=== PATIENT | female | born 2000 | race Caucasian/White ===

== ENCOUNTER 2022-04-08 03:53 | Emergency (ER) | payer OTHER, SELFPAY ==
[2022-04-08 04:00] VITALS: BP 115/71; PULSE 72; RESP 19; TEMP 37; O2SAT 98; BMI 24.3
--- NOTE | 2022-04-08 04:13 | XRR_ITS ---
PROCEDURE INFORMATION: Exam: XR Left Hand Exam date and time: 04/08/2022 4:19 AM Age: 22 years old Clinical indication: Injury or trauma; Other: Laceraction; Work related; Left; Little finger; Patient HX: Patient was at work and had lt 5th digit pinched by a piece of metal small laceration to plantar aspect of 5th digit at region of middle phalange. TECHNIQUE: Imaging protocol: Radiologic exam of the Left hand. Views: 3 or more views. COMPARISON: No relevant prior studies available. FINDINGS: Bones/joints: Osseous structures of the hand are without an acute process. Distal radioulnar joint and radiocarpal joints grossly normal. Carpus without fracture. Metacarpals and phalangeal without fracture or dislocation. No erosive changes or periarticular calcifications. Soft tissues: Normal. XR/XR hand LT min 3V* [id number] IMPRESSION: Normal hand. No fracture. No foreign body.
--- NOTE | 2022-04-08 04:14 | W.ED.WOUNDLC ---
HPI - Wound/Laceration General: Chief Complaint: Wound/Laceration Stated Complaint: left hand lac Time Seen by Provider: 04/08/22 03:55 Source: patient Mode of arrival: ambulatory Limitations: no limitations History of Present Illness: 22-year-old female who states she is at work tonight states she injured it with her left pinky finger getting pinched by a piece of metal. She does have a laceration to the palmar aspect to her finger lastly 1 cm states he does have some slight pain she rates her pain a 2 out of 10 denies any other injuries last tetanus was 10 years ago. Associated symptoms: Denies chills, fever(s), nausea or vomiting Review of Systems Const: Denies: fever(s), chills, body aches or change in appetite Eyes: Denies: blurry vision or eye discomfort ENMT: Denies: throat pain or dental pain Card: Denies: chest pain Resp: Denies: dyspnea GI: Denies: abdominal pain, nausea, vomiting or diarrhea : Denies: dysuria Musc: Reports: extremity pain Skin/Breast: Denies: rash Neuro: Denies: headache(s) Psych: Denies: depression Gerardo/Lymph: Denies: easy bruising All/Imm: Denies: urticaria PFSH ED PFSH: Medical History (Updated 04/08/22 @ 04:28 by Hayder Sandoval MD) No pertinent past medical history Social History (Updated 04/08/22 @ 04:15 by Hayder Sandoval MD) Substance/Drug Use: never Physical Exam Const: COMMON NORMALS: no acute distress, average body habitus and patient oriented x3 HENMT: COMMON NORMALS: atraumatic HEAD & SCALP: atraumatic Eye: COMMON NORMALS: conjunctivae normal CONJUNCTIVA: Yes conjunctivae normal Neck/C-Spine: COMMON NORMALS: full ROM and supple Chest: COMMONS NORMALS: normal inspection of the chest Resp: COMMON NORMALS: normal respiratory effort Cardio: COMMON NORMALS: regular rate RATE: regular rate GI: INSPECTION: Yes normal to inspection Extremity: COMMON NORMALS: full ROM Neuro: COMMON NORMALS: patient oriented x3 Psych: COMMON NORMALS: mental status grossly normal Skin: NARRATIVE SKIN EXAM: 1 cm laceration palmar aspect to left pinky finger at the DIP no tendon involvement Procedures Laceration Laceration 1: Site: hand Side (If applicable): left Size (cm): 1 Description: linear Depth: simple, single layer Local Anesthetic: lidocaine 1% Amount of anesthesia used (mL): 8 Pre-repair: wound explored and irrigated extensively Skin layer closed with: nylon Size (cm): 5-0 Course Vital Signs: Vital signs: Vital Signs Temperature 98.6 F 04/08/22 04:00 Pulse Rate 72 04/08/22 04:00 Respiratory Rate 19 H 04/08/22 04:00 Blood Pressure 115/71 04/08/22 04:00 Pulse Oximetry 98 04/08/22 04:00 Oxygen Delivery Me thod 04/08/22 04:00 MDM - Wound/Laceration Medical Decision Making Patient presents with a finger laceration she has no tendon involvement no fracture wound was irrigated thoroughly wound was repaired she is return in 7 days for suture removal Discharge Plan Discharge Patient Disposition: Home Clinical Impression: Laceration Discharge Orders: Discharge ED (Routine); Ordered 04/08/22 Ordered By: Hayder Sandoval Discharge Diet: Advance as tolerated Discharge Activity: Resume usual activity Patient Instructions: Laceration (ED) Activity Restrictions/Additional Instructions: suture removal in 7 days Coding Level of Care Code ED Smoking Pipe Liner for Ray Fwd Exam Comprehensive
[2022-04-08] MEDS: tetanus-dipt-pertussis 0.5 mL SDV IM (04:37)
[2022-04-08 05:11] VITALS: BP 115/71; PULSE 72; RESP 16; TEMP 37; O2SAT 98
== END 2022-04-08 05:13 | disposition home or self-care (01) ==
PROVIDERS: Emergency Provider Emergency Medicine
DX: S61.217A Laceration without foreign body of left little finger without damage to nail, initial encounter (principal); W23.0XXA Caught, crushed, jammed, or pinched between moving objects, initial encounter; Z23 Encounter for immunization
CPT/HCPCS: 12001; 73130; 90471; 90715; 99283

== ENCOUNTER 2022-11-02 11:22 | Outpatient (CLI) | payer OTHER, SELFPAY ==
--- NOTE | 2022-11-02 11:38 | US_ITS ---
WS: [id number] ULTRASOUND LEFT BREAST HISTORY: MASS IN LEFT BREAST COMPARISON: None available. TECHNIQUE: 2-D and Doppler. There is a lobulated solid soft tissue mass centered in the LEFT breast at 1:00, 4 cm from the nipple . This is a hypoechoic lobulated soft tissue mass measuring 2.5 x 1.8 x 2.9 cm. No significant vascul arity. No additional abnormality. IMPRESSION: US/US breast LT limited* [id number] BI-RADS: 4-Suspicious Finding-Biopsy Should Be Considered FOLLOW-UP: Biopsy Recommended 1. Solid mass RIGHT breast at 1:00. 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 2. Recommend ultrasound guided biopsy LEFT breast mass for confirmation.
== END 2022-11-02 11:23 | disposition home or self-care (01) ==
PROVIDERS: PCP Nurse Practitioner Family; Visit Provider Nurse Practitioner Family
DX: N63.21 Unspecified lump in the left breast, upper outer quadrant (principal)
CPT/HCPCS: 76642

== ENCOUNTER 2022-12-01 07:56 | Outpatient (CLI) | payer OTHER, SELFPAY ==
--- NOTE | 2022-12-01 08:08 | US_ITS ---
WS: [id number] ULTRASOUND-GUIDED LEFT BREAST BIOPSY HISTORY: ABNORMAL MAMMOGRAM ON LT BREAST COMPARISON: 11/02/2022 Procedure, risks and complications are explained to the patient. Medications are reviewed. Consent is obtained. The mass in the LEFT breast is localized with ultrasound. Mass localizes to 1:00, 4 cm from the nippl e. Skin is cleansed with ChloraPrep and anesthetized with 1% buffered lidocaine. Small dermatome is m nataliia. Under sterile conditions mass is biopsied with a 14-gauge Achieve needle. Multiple core biopsies are performed. Material placed in formalin and sent to pathology for review. No complications encoun tered. Breast tissue marker (Stylistpick ultrasound enhanced ribbon): Single. Patient left the radiology suite with no complications. Patient is instructed to return to [place] or [facility] with any concerns. US/[place] [id number] IMPRESSION: 1. Uncomplicated core needle biopsy LEFT breast mass at 1:00. 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 RECOMMENDATION: No additional imaging necessary. Follow-up with primary care ph ysician.
== END 2022-12-01 07:57 | disposition home or self-care (01) ==
PROVIDERS: PCP Nurse Practitioner Family; Visit Provider Nurse Practitioner Family
DX: D24.2 Benign neoplasm of left breast (principal)
CPT/HCPCS: 19083; 88305

== ENCOUNTER → 2023-07-25 16:01 | Outpatient (BNVA) | payer OTHER, SELFPAY | PROVIDERS: PCP Nurse Practitioner Family; Referring Provider Internal Medicine; Visit Provider Nurse Practitioner Women's Health | DX: Z30.431 Encounter for routine checking of intrauterine contraceptive device (principal); Z30.9 Encounter for contraceptive management, unspecified; Z12.4 Encounter for screening for malignant neoplasm of cervix | CPT/HCPCS: 81025; 88175 ==

== ENCOUNTER → 2023-09-27 14:44 | Outpatient (BNVA) | payer OTHER, SELFPAY | PROVIDERS: PCP Nurse Practitioner Family; Visit Provider Nurse Practitioner Women's Health | DX: R87.619 Unspecified abnormal cytological findings in specimens from cervix uteri (principal); Z30.431 Encounter for routine checking of intrauterine contraceptive device | CPT/HCPCS: 88175 ==

== ENCOUNTER 2025-03-27 12:50 | Inpatient (IN) | payer OTHER, SELFPAY ==
--- OUTSIDE RECORDS SUMMARY | 2025-03-27 13:01 | XMS_ITS | Encounter Summary ---
Author Organization [facility] Address [address] [place] [address] Care Team Providers Care Tar Leveler Name Role Phone Krysta Davis MD Primary Care Provider [phone] Encounter Details Date Type Department Care Team (Late st Contact Info) Description 03/20/2025 External Device Data [facility] Provider, Abstract NO ADDRESS ON FILE Social History Tobacco Use Types Packs/Day Years Used Date Smoking Tobacco: Every Day Cigarettes 0.3 1.1 Started: 03/05/2024 Smokeless Tobacco: Never Alcohol Use Standard Drinks/Week Comments Never 0 (1 standard drink = 0.6 oz pur e alcohol) Comments No Sex and Gender Information Value Date Recorded Sex Assigned at Not on file Legal Sex Female 1:08 PM CDT Gender Identity Not on file Sexual Orientation Not on file documented as of this encounter Plan of Treatment Not on file documented as of this encounter Visit Diagnoses Not on filedocumented in this encounter Additional Health Concerns Assessment Noted Time PHQ-9 Depression Total Score: 1 10/05/19 25 4:07 PM 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
--- OUTSIDE RECORDS SUMMARY | 2025-03-27 13:02 | XMS_ITS | Clinical Summary ---
Author Organization [facility] [address] Address [address] [place] [address] Care Team Providers Care Agri Business Agent Name Role Phone Krysta Davis MD Primary Care Provider [phone] Allergies No known active allergies Medications levonorgestreL (Mirena) 21 mcg/24 hr (8 yrs) 52 mg IUD 1 Device by Intrauterine route. Active busPIRone (BUSPAR) 10 mg tabletIndicati ons:Recurrent major depressive disorder, in partial remission,Gene ralized anxiety disorder Take 1 Tablet (10 mg) by mouth 3 times daily. 180 Tablet 3 10/05/19 25 Active escitalopram oxalate (LEXAPRO) 20 mg tabletIndicati ons:Recurrent major depressive disorder, in partial remission,Gene ralized anxiety disorder Take 1 tablet by mouth once daily 100 Tablet 2 03/04/20 25 Active escitalopram oxalate (LEXAPRO) 20 mg tabletIndicati ons:Recurrent major depressive disorder, in partial remission,Gene ralized anxiety disorder Take 1 Tablet (20 mg) by mouth daily. 30 Tablet 3 10/05/19 25 025 Discontinued Active Problems No known active problems Encounters Date Type Department Care Team Description 03/20/2025 External Device Data [facility] ABSTRACTION Provider, Abstract 03/20/2025 External Device Data [facility]STRACTION Provider, Abstract 03/02/2025 Refill [facility] [address] [place] [address] Martha Garcia NP Recurrent major depressive disorder, in partial remission; Generalized anxiety disorder 02/20/2025 External Device Data [facility]STRACTION Provider, Abstract 01/29/2025 External Device Data [facility]STRACTION Provider, Abstract 01/25/2025 External Device Data [facility] ABSTRACTION Provider, Abstract 01/24/2025 External Device Data [facility]STRACTION Provider, Abstract 01/23/2025 External Device Data [facility] ABSTRACTION Provider, Abstract from Last 3 Months Immunizations Immunization Administration Dates Next Due (PFIZER)(12 YR UP) COVID-19 VACCINE - EMERGENCY USE AUTHORIZATION, MRNA, [id number](PF) 30 MCG/0.3 ML IM SUSP 08/05/2021,07/06/2021 Family History Medical History Relation Name Comments Skin Cancer Father Lung Cancer Mother Relation Name Status Comments Father Mother Social History Tobacco Use Types Packs/Day Years Used Date Smoking Tobacco: Every Day Cigarettes 0.3 1.1 Started: 03/05/2024 Smokeless Tobacco: Never Tobacco Cessation:Ready to Q uit: Not Asked; Counseling Given: No Alcohol Use Standard Drinks/Week Comments Never 0 (1 standard drink = 0.6 oz pur e alcohol) Comments No Sex and Gender Information Value Date Recorded Sex Assigned at Not on file Legal Sex Female 1:08 PM CDT Gender Identity Not on file Sexual Orientation Not on file Last Filed Vital Signs Vital Sign Reading Time Taken Comments Blood Pressure 110/70 10/05/2024 4:01 PM DRAFTER ELECTROMECHANICAL Pulse 90 10/05/2024 4:01 PM DRAFTER ELECTROMECHANICAL Temperature 36.9 C (98.4 F) 10/05/2024 4:01 PM DRAFTER ELECTROMECHANICAL Respiratory Rate 16 10/05/2024 4:01 PM DRAFTER ELECTROMECHANICAL Oxygen Saturation 96% 10/05/2024 4:01 PM DRAFTER ELECTROMECHANICAL Inhaled Oxygen Concentration - - Weight 67.1 kg (148 lb) 10/05/2024 4:01 PM DRAFTER ELECTROMECHANICAL Height 177.8 cm (5' 10 ) 10/05/2024 4:01 PM DRAFTER ELECTROMECHANICAL Body Mass Index 21.24 10/05/2024 4:01 PM DRAFTER ELECTROMECHANICAL Plan of Treatment Health Maintenance Due Date Last Done Comments HPV VACCINES (1 - 3-dose series) 01/11/2016 DTAP/TDAP/TD VACCINES (1 - Tdap) 01/11/2020 HEPATITIS B VACCINES (1 of 3 - 19+ 3-dose series) 01/11/2020 CERVICAL CANCER SCREENING 2022 HPV/Cotest (21-29) 2022 PAP SMEAR 2022 COVID-19 Vaccine (2023-2 5 season) 2024 08/05/2021, 07/06/2021 Preventative Visit- Commercial 09/05/2024 INFLUENZA VACCINE (#1) 2025 , 06/19/2024, 06/04/2022, Additional history exists Insurance [place] [id number] Care Teams Agri Business Agent Relationship Specialty Start Date End Date Krysta Davis MD [address] [address] PCP - General Family Practice 11/08/23
--- OUTSIDE RECORDS SUMMARY | 2025-03-27 13:02 | XMS_ITS | Encounter Summary ---
Author Organization [facility] Address [address] [place] [address] Care Team Providers Care Fabrication Welder Name Role Phone Krysta Davis MD Primary Care Provider [phone] Encounter Details Date Type Department Care Team [...] Total Score: 1 10/05/19 25 4:07 PM COUNCILPERSON documented as of this encounter Care Teams Fabrication Welder Relationship Specialty Start Date End Date Krysta Davis MD [address] [facility] [address] [place] [address] PCP - General Family Practice 11/08/23 documented as of this encounter
[2025-03-27 13:09] VITALS: BP 141/89; PULSE 64; RESP 18; TEMP 36.7; O2SAT 99
[2025-03-27 13:15] VITALS: O2SAT 99
--- NOTE | 2025-03-27 13:15 | W.ED.PSYCHS ---
HPI - Psych General: Chief Complaint: Psychiatric Symptoms Stated Complaint: MHE Time Seen by Provider: 03/27/25 13:02 History of Present Illness: 25-year-old female with history of anxiety and depression, who presents to the ED for suicidal ideation. She states that she has been having thoughts of harming herself over the last month but this morning at about 0800 she had thoughts of hanging myself . She states that she does not have a plan at the moment. She reports that she has been stressed recently because her mother has cancer, her cousin had ended his life, as well as marital problems all within this year. She is currently on escitalopram and buspirone and states these have been increased about 4 months ago. Denies any thoughts of harm to others. She states that she has never been admitted before for suicidal ideation. No other complaints at this time. Associated symptoms: Reports depression and suicidal ideation; Deny homicidal ideation Related Data Home Medications ?Medication ?Instructions ?Recorded ?Confirmed levonorgestrel (Mirena) 1 device intrauterine .[id number] 09/27/23 03/27/25 buspirone 10 mg tablet 10 mg PO TID 03/27/25 03/27/25 escitalopram oxalate 20 mg tablet 20 mg PO DAILY 03/27/25 03/27/25 Allergies Allergy/AdvReac Type Severity Reaction Status Date / Time No Known Drug Allergies Allergy none Verified 10/01/24 14:04 Review of Systems Const: Denies: fever(s) or fatigue Card: Denies: chest pain or palpitations Resp: Denies: dyspnea GI: Denies: abdominal pain, nausea, vomiting or change in bowel habits : Denies: difficulty voiding, dysuria or hematuria Psych: Reports: anxiety, depression and suicidal ideation; Denies: homicidal ideation [facility] ED PFSH: Medical History Abnormal Pap smear of cervix No pertinent past medical history Family History Denies family history of Colon cancer Ovarian cancer Diabetes Depression Heart disease Breast cancer Hypertension Uterine cancer Thyroid disease Stroke Social History Smoking and tobacco/nicotine status: never used tobacco/nicotine Substance/Drug Use: never Physical Exam Const: COMMON NORMALS: no acute distress, patient oriented x3 and well nourished GENERAL APPEARANCE: anxious HENMT: COMMON NORMALS: normocephalic HEAD & SCALP: normocephalic Resp: COMMON NORMALS: normal respiratory effort and clear to auscultation bilaterally AUSCULTATION: clear to auscultation bilaterally Cardio: COMMON NORMALS: regular rate and regular rhythm RATE: regular rate RHYTHM: regular rhythm Neuro: COMMON NORMALS: patient oriented x3 Psych: MOOD & AFFECT: Yes depressed mood and Yes tearful THOUGHT CONTENT: Yes Suicidality present and No Homicidality present Course Vital Signs: Vital signs: Vital Signs Temperature 98.1 F 03/27/25 13:09 Pulse Rate 64 03/27/25 13:09 Respiratory Rate 18 03/27/25 13:09 Blood Pressure 141/89 03/27/25 13:09 Pulse Oximetry 99 03/27/25 13:15 Oxygen Delivery Me thod Room Air 03/27/25 13:15 MDM - Psych Medical Decision Making Pt presetns with suicidal ideation and depression. Pt placed on 96 hr hold for suicidal ideation. Discussed with Dr. Guerrero admission orders written Medical Records I reviewed the patient's medical records. Lab Data I reviewed the patient's lab results. 03/27/25 13:43 03/27/25 13:43 Laboratory Results WBC 7.63 10^3/uL (3.29-11.43) 03/27/25 13:43 RBC 3.98 10^6/uL (3.85-5.65) 03/27/25 13:43 Hgb 11.70 g/dL (11.27-16.99) 03/27/25 13:43 Hct 35.5 % (36-47) L 03/27/25 13:43 MCV 89.2 fl (85-98) 03/27/25 13:43 MCH 29.4 pg (27-33) 03/27/25 13:43 MCHC 33.0 g/dL (30-55) 03/27/25 13:43 RDW 12.8 % (12.1-15.1) 03/27/25 13:43 Plt Count 261 10^3/cmm (157-399) 03/27/25 13:43 MPV 9.5 fL (7.4-10.4) 03/27/25 13:43 Neut % (Auto) 62.7 % 03/27/25 13:43 Lymph % (Auto) 29.6 % 03/27/25 13:43 Villalba % (Auto) 5.0 % 03/27/25 13:43 Eos % (Auto) 2.1 % 03/27/25 13:43 Baso % (Auto) 0.5 % 03/27/25 13:43 Neut # (Auto) 4.78 10^3/uL (1.8-7.7) 03/27/25 13:43 Lymph # (Auto) 2.3 10^3/uL (0.8-4.8) 03/27/25 13:43 Villalba # (Auto) 0.4 10^3/uL (0.2-0.9) 03/27/25 13:43 Eos # (Auto) 0.2 10^3/uL (0.0-0.8) 03/27/25 13:43 Baso # (Auto) 0.0 10^3/uL (0.0-0.1) 03/27/25 13:43 Nucleated RBC % (auto) 0 % 03/27/25 13:43 Nucleated RBCs # 0.0 /100WBC 03/27/25 13:43 Sodium 140 mmol/L (136-145) 03/27/25 13:43 Potassium 3.9 mmol/L (3.5-5.1) 03/27/25 13:43 Chloride 102 mmol/L (98-107) 03/27/25 13:43 Carbon Dioxide 26 mmol/L (22-29) 03/27/25 13:43 Anion Gap 15.9 (5-19) 03/27/25 13:43 BUN 12 mg/dL (6-20) 03/27/25 13:43 Creatinine 0.8 mg/dL (0.5-0.9) 03/27/25 13:43 GFR Calculation 88.1 mL/min (90-130) L 03/27/25 13:43 Glucose 88 mg/dL (65-115) 03/27/25 13:43 Calculated Osmolality 289 mOsm/kg (285-295) 03/27/25 13:43 Calcium 9.2 mg/dL (8.5-10.5) 03/27/25 13:43 Total Bilirubin 0.2 mg/dL (0.15-1.2) 03/27/25 13:43 AST 11 U/L (0-32) 03/27/25 13:43 ALT < 5 U/L (0-33) 03/27/25 13:43 Alkaline Phosphatase 75 U/L (35-105) 03/27/25 13:43 Total Protein 6.7 g/dL (6.6-8.7) 03/27/25 13:43 Albumin 4.2 g/dL (3.5-5.2) 03/27/25 13:43 Globulin 2.5 g/dL (1.3-4.6) 03/27/25 13:43 HCG, Qual Negative (Negative) 03/27/25 13:43 Salicylates < 0.3 mg/dL (3-10) L 03/27/25 13:43 Acetaminophen < 5.0 ug/mL (10-30) L 03/27/25 13:43 All radiology interpretation(s) finalized by discharge Discharge Plan Discharge Patient Disposition: Admitted As Inpatient Clinical Impression: Suicidal ideation, Depression Condition: Stable Coding Level of Care Code ED Industrial Hygienist for Ray Gutierres
[2025-03-27 14:13] LABS: Hematocrit 35.5 % (36-47); Hemoglobin 11.70 g/dL (11.27-16.99); Mean Corpuscular HGB Conc 33.0 g/dL (30-55); Mean Corpuscular Hemoglobin 29.4 pg (27-33); Mean Corpuscular Volume 89.2 fl (85-98); Nucleated Red Blood Cells % 0 %; Platelet Count 261 10^3/cmm (157-399); Red Blood Count 3.98 10^6/uL (3.85-5.65); White Blood Count 7.63 10^3/uL (3.29-11.43)
[2025-03-27 14:22] LABS: HCG, Serum Qual Negative (Negative)
[2025-03-27 14:26] LABS: Alanine Aminotransferase < 5 U/L (0-33); Albumin Level 4.2 g/dL (3.5-5.2); Alkaline Phosphatase 75 U/L (35-105); Anion Gap 15.9 (5-19); Aspartate Amino Transferase 11 U/L (0-32); Blood Urea Nitrogen 12 mg/dL (6-20); Calcium 9.2 mg/dL (8.5-10.5); Carbon Dioxide 26 mmol/L (22-29); Chloride 102 mmol/L (98-107); Globulin 2.5 g/dL (1.3-4.6); Glucose 88 mg/dL (65-115); Osmolality Calculated 289 mOsm/kg (285-295); Potassium 3.9 mmol/L (3.5-5.1); Sodium 140 mmol/L (136-145); Total Protein 6.7 g/dL (6.6-8.7)
[2025-03-27 14:29] LABS: Acetaminophen < 5.0 ug/mL (10-30); Salicylate < 0.3 mg/dL (3-10)
--- NOTE | 2025-03-27 15:07 | PC.NURSE ---
96 hr rights reviewed with pt @4952 with assistance of [facility] purchasing officer Brice Stephens All education reviewed with pt at this time. Pt verbalized understanding to hold parameters. Patient copy was left with pt @bedside. Pt declined a snack or drink when asked. No further needs.
--- NOTE | 2025-03-27 16:48 | ECG_ITS ---
[facility] Date: 2025-03-27 Pat Name: Stephanie Fields Department: Room: 124 Gender: Female Family Dinner Service Specialist: : 2000 Requested By: Ramiro Bowman Order Number: [id number] Alirio MD: Dylan Ryder M.D. Measurements Intervals [place] Rate: 45 P: 141 FL: 149 QRS: 123 QRSD: 91 T: 130 QT: 496 QTc: 429 Interpretive Statements ECTOPIC ATRIAL BRADYCARDIA POSSIBLE LEFT ATRIAL ENLARGEMENT [-0.1mV P-WAVE IN V1/V2] RIGHT AXIS DEVIATION [QRS AXIS > 100] POSSIBLE RIGHT VENTRICULAR CONDUCTION DELAY [RSR (QR) IN V1/V2] No previous ECG available for comparison Electronically Signed On 03-28-2025 09:10:36 CDT by Dylan Ryder M.D. [email or web address]
[2025-03-27 17:25] LABS: Respiratory Syncytial Virus Ce NEGATIVE (Negative); SARS-CoV-2 PCR NEGATIVE (Negative)
[2025-03-27 17:34] VITALS: BP 141/89; PULSE 65; O2SAT 100
--- NOTE | 2025-03-27 18:21 | PC.NURSE ---
Psych narrative Patient admitted to ER with the diagnosis SI with depression. Patient was calm and cooperative.
--- NOTE | 2025-03-27 18:29 | PC.ADMIT ---
[email or web address] [facility] Ad[facility] Note: The patient,Stephanie Fields,25 y/o, was given written information regarding hospital policies, unit procedures and contact persons. Patient's smoking status: never smoked. Vital Signs - 8 hr 03/27/25 13:09 03/27/25 13:15 03/27/25 17:34 Temperature 98.1 F Pulse Rate 64 65 Respiratory Rate 18 Blood Pressure 141/89 141/89 Pulse Oximetry 99 99 100 Oxygen Delivery Method Room Air Room Air 03/27/25 17:39 Temperature Pulse Rate Respiratory Rate Blood Pressure Pulse Oximetry Oxygen Delivery Method Room Air Psych narrative Patient admitted to ER with the diagnosis SI with depression. Patient was calm and cooperative.
[2025-03-27 18:32] VITALS: BP 133/86; PULSE 53; RESP 18; TEMP 36.6; O2SAT 99
[2025-03-27 19:51] VITALS: BP 117/69; PULSE 54; RESP 18; TEMP 36.3; O2SAT 98
[2025-03-28 06:00] VITALS: BP 114/80; PULSE 56; RESP 18; O2SAT 96
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
[2025-03-28 14:00] VITALS: BP 144/79; PULSE 51; RESP 18; TEMP 37.5; O2SAT 100
[2025-03-28 20:43] VITALS: BP 114/67; PULSE 60; RESP 17; TEMP 36.9; O2SAT 99
[2025-03-29 06:00] VITALS: BP 106/62; PULSE 78; RESP 19; TEMP 36.8; O2SAT 99
[2025-03-29 14:00] VITALS: BP 116/78; PULSE 60; RESP 16; TEMP 37.1; O2SAT 100
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
[2025-03-29 20:11] VITALS: BP 115/71; PULSE 60; RESP 18; TEMP 36.9; O2SAT 99
[2025-03-30 06:00] VITALS: BP 124/82; PULSE 79; RESP 18; TEMP 37.1; O2SAT 95
[2025-03-30 14:00] VITALS: BP 104/71; PULSE 74; RESP 18; TEMP 37.3; O2SAT 98
--- NOTE | 2025-03-30 17:57 | PC.NURSE ---
Pt became paranoid when dinner arrived that her food was being poisoned. Pt finally ate a prepackaged cookie. Pt was tearful and just wishes to go home.Pt was administered a 5mg Zyprexa Zydis, all pt's needs are currently met.
[2025-03-30 19:56] VITALS: BP 116/81; PULSE 75; RESP 17; TEMP 37; O2SAT 100
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
[2025-03-31 06:00] VITALS: BP 125/85; PULSE 86; RESP 18; TEMP 37.2; O2SAT 95; BMI 19.7
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
[2025-03-31 14:00] VITALS: BP 98/65; PULSE 75; RESP 18; TEMP 37.1; O2SAT 98
[2025-03-31 21:23] VITALS: BP 113/82; PULSE 72; RESP 18; TEMP 36.6; O2SAT 100
[2025-04-01 06:00] VITALS: BP 96/61; PULSE 71; RESP 16; TEMP 36.8; O2SAT 99
[2025-04-01 14:00] VITALS: BP 110/73; PULSE 72; RESP 18; TEMP 36.8; O2SAT 98
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
[2025-04-01 16:04] VITALS: BP 110/73; PULSE 72; RESP 18; TEMP 36.8; O2SAT 98
== END 2025-04-01 17:00 | disposition home or self-care (01) | DRG 881 ==
LOC: ER 17:18 → NP 17:32
PROVIDERS: Admitting Provider Psychiatry & Neurology Psychiatry; Emergency Provider Family Medicine; PCP Nurse Practitioner Family; Visit Provider Psychiatry & Neurology Psychiatry
DX: F32.A Depression, unspecified (principal); R45.851 Suicidal ideations; F41.9 Anxiety disorder, unspecified; F17.210 Nicotine dependence, cigarettes, uncomplicated; F42.9 Obsessive-compulsive disorder, unspecified; Z81.8 Family history of other mental and behavioral disorders; Z81.1 Family history of alcohol abuse and dependence
CPT/HCPCS: 36415; 80053; 80307; 84703; 85025; 87637; 93005; 97150; 97165; 99285; J9999; Q0162